=== PATIENT | female | born 1995 | race Caucasian/White ===

== ENCOUNTER 2019-10-29 22:20 | Emergency (ER) | payer MEDICAID, OTHER ==
[~2019-10-29] VITALS: Ht 157.5 cm; Wt 85.8 kg
[2019-10-29 23:52] VITALS: BP 112/64
[2019-10-30] MEDS ORDERED: ACETAMINOPHEN 500 MG TAB PO ONE (01:30)
== END 2019-10-30 02:08 | disposition home or self-care (01) ==
LOC: ER 22:20
DX: O26.891 Other specified pregnancy related conditions, first trimester (principal); G43.909 Migraine, unspecified, not intractable, without status migrainosus; M54.2 Cervicalgia; Z3A.01 Less than 8 weeks gestation of pregnancy